=== PATIENT | male | born 1960 | race Two or more races ===

== ENCOUNTER 2017-10-17 21:55 | Inpatient (IN) | payer OTHER ==
[~2017-10-17] VITALS: Ht 177.8 cm; Wt 112.0 kg
[2017-10-17 22:55] LABS: Basophils # (auto) 0 uL; Basophils % (auto) 0.1 % (0.0-2.0); Eosinophils # (auto) 0 uL; Eosinophils % (auto) 0.1 % (0.0-7.0); Hematocrit 30.5 % (41.0-53.0); Hemoglobin 10.5 g/dL (13.5-17.5); Lymphocytes # (auto) 1.5 uL; Mean Corpuscular Hgb Conc. 34.3 g/dL (32.0-36.0); Mean Corpuscular Volume 96.2 fL (80.0-100.0); Monocytes # (auto) 0.9 uL; Monocytes % (auto) 7.1 % (0.0-12.0); Neutrophils # (auto) 10.3 uL; Neutrophils % (auto) 80.7 % (37.0-80.0); Nucleated Red Blood Cells % 0.1 %; Platelet Count (auto) 418 10^3/uL (140-450); Red Blood Cells 3.17 10^6/uL (4.5-5.90); Red Cell Distribution Width 12.4 % (11.8-14.3); White Blood Cell 12.7 10^3/uL (4.4-10.8)
[2017-10-17 23:09] LABS: Alanine Aminotransferase 11 U/L (16-61); Albumin 2.5 g/dL (3.4-5.0); Anion Gap 13 (5-15); Aspartate Aminotransferase 7 U/L (15-37); Blood Urea Nitrogen 23 mg/dL (7-18); Calcium 8.9 mg/dL (8.5-10.1); Carbon Dioxide 18 mmol/L (21-32); Chloride 102 mmol/L (98-107); GFR African American 56 mL/min; GFR Non-African American 46 mL/min; Glucose 91 mg/dL (74-106); Potassium 4.5 mmol/L (3.5-5.1); Sodium 133 mmol/L (136-145)
[2017-10-17 23:13] LABS: Alkaline Phosphatase 90 U/L (45-117); Bilirubin, Total 0.4 mg/dL (0.2-1.0); Total Protein 7.7 g/dL (6.4-8.2)
[2017-10-17 23:14] LABS: Lactic Acid w/Reflex 3.4 mmol/L (0.4-2.0)
[2017-10-18] MEDS ORDERED: MORPHINE SULFATE 4 MG/ML SYR/VIAL IV ONE (05:15)
[2017-10-18] MEDS ORDERED: ONDANSETRON HCL 4 MG/2 ML VIAL IV ONE (05:15)
[2017-10-18] MEDS ORDERED: SODIUM CHLORIDE 0.9% 1,000 ML IV ONE (05:45)
[2017-10-18] MEDS ORDERED: CLINDAMYCIN 900MG IV 50 ML IV ONE (08:15)
[2017-10-18] MEDS ORDERED: LORazepam 0.5 MG TAB PO PRN (08:15)
[2017-10-18] MEDS ORDERED: PIPERACILLIN-TAZOB 3.375GM 100 ML IV ONE (08:15)
[2017-10-18] MEDS ORDERED: DEXTROSE (50%) 50ML SYRG IV PRN ×2 (08:15→11:45)
[2017-10-18] MEDS ORDERED: NITROGLYCERIN 0.4 MG SL TAB SL PRN ×2 (08:15→10:45)
[2017-10-18] MEDS ORDERED: TEMAZEPAM 15 MG CAP PO PRN (08:15)
[2017-10-18] MEDS ORDERED: ACETAMINOPHEN 500 MG TAB PO PRN ×2 (08:15→10:45)
[2017-10-18] MEDS ORDERED: PROMETHAZINE HCL 25 MG/ML 1ML IV PRN (08:15)
[2017-10-18] MEDS ORDERED: MORPHINE SULFATE 4 MG/ML SYR/VIAL IV PRN ×2 (08:15→10:45)
[2017-10-18] MEDS ORDERED: HYDROcodone-ACET 5/325MG TAB PO PRN (08:15)
[2017-10-18] MEDS ORDERED: VANCOMYCIN 1GM/250ML 250 ML IV ONE ×2 (08:15→09:45)
[2017-10-18] MEDS ORDERED: MORPHINE SULFATE 8mg/ml INJ SDV IV PRN ×3 (08:15→11:00)
[2017-10-18] MEDS ORDERED: VANCOMYCIN PER PHARMACY 0 MG IV SCH (10:45)
[2017-10-18] MEDS ORDERED: InsuLIN REG 1unit/0.01ml Soln (100units/ml) SC SCH (11:30)
[2017-10-18] MEDS ORDERED: ACCU-CHEK COMFORT CURVE STRIP VI SCH (11:30)
[2017-10-18] MEDS: InsuLIN REG 1unit/0.01ml Soln (100units/ml) SC SCH ×3 (11:37→21:46)
[2017-10-18] MEDS ORDERED: SODIUM CHLORIDE 0.9% 2,000 ML IV ONE (11:45)
[2017-10-18] MEDS: ACCU-CHEK COMFORT CURVE STRIP VI SCH ×3 (11:48→21:46)
[2017-10-18] MEDS: ONDANSETRON HCL 4 MG/2 ML VIAL IV PRN (11:48)
[2017-10-18] MEDS: MORPHINE SULFATE 8mg/ml INJ SDV IV PRN ×3 (11:48→21:00)
[2017-10-18] MEDS ORDERED: PIPERACILLIN-TAZOB 3.375GM 100 ML IV SCH (12:00)
[2017-10-18] MEDS ORDERED: CLINDAMYCIN 600MG IV 50 ML IV SCH (13:00)
[2017-10-18] MEDS: SODIUM CHLORIDE 0.9% 1,000 ML IV SCH ×2 (13:41→21:47)
[2017-10-18] MEDS: PIPERACILLIN-TAZOB 3.375GM 100 ML IV SCH ×2 (13:41→18:14)
[2017-10-18 14:00] VITALS: BP 133/75
[2017-10-18 18:04] VITALS: BP 117/65
[2017-10-18 20:00] VITALS: BP 140/77
[2017-10-18] MEDS: VANCOMYCIN 1GM/250ML 250 ML IV SCH (21:45)
[2017-10-18 22:00] VITALS: BP 127/74
[2017-10-19] MEDS: PIPERACILLIN-TAZOB 3.375GM 100 ML IV SCH ×4 (00:13→17:25)
[2017-10-19] MEDS: MORPHINE SULFATE 8mg/ml INJ SDV IV PRN ×4 (01:48→17:25)
[2017-10-19 05:00] VITALS: BP 115/70
[2017-10-19] MEDS: InsuLIN REG 1unit/0.01ml Soln (100units/ml) SC SCH ×4 (06:19→22:00)
[2017-10-19] MEDS: ACCU-CHEK COMFORT CURVE STRIP VI SCH ×4 (06:20→22:00)
[2017-10-19 07:11] LABS: Basophils # (auto) 0 uL; Basophils % (auto) 0.4 % (0.0-2.0); Eosinophils # (auto) 0.1 uL; Eosinophils % (auto) 0.7 % (0.0-7.0); Hematocrit 27.1 % (41.0-53.0); Hemoglobin 9.3 g/dL (13.5-17.5); Lymphocytes # (auto) 1.7 uL; Mean Corpuscular Hemoglobin 32.9 pg (28.0-32.0); Mean Corpuscular Hgb Conc. 34.2 g/dL (32.0-36.0); Monocytes # (auto) 0.7 uL; Monocytes % (auto) 7.2 % (0.0-12.0); Neutrophils # (auto) 7.9 uL; Neutrophils % (auto) 75.7 % (37.0-80.0); Platelet Count (auto) 378 10^3/uL (140-450); Red Blood Cells 2.82 10^6/uL (4.5-5.90); Red Cell Distribution Width 12.4 % (11.8-14.3); White Blood Cell 10.4 10^3/uL (4.4-10.8)
[2017-10-19 07:29] LABS: BUN/Creatinine Ratio 11.6; Calcium 8.3 mg/dL (8.5-10.1); Potassium 4.1 mmol/L (3.5-5.1)
[2017-10-19] MEDS: SODIUM CHLORIDE 0.9% 1,000 ML IV SCH ×2 (07:30→17:25)
[2017-10-19 08:30] VITALS: BP 130/75
[2017-10-19 09:00] VITALS: BP 130/75
[2017-10-19] MEDS: VANCOMYCIN 1GM/250ML 250 ML IV SCH ×2 (10:18→23:30)
[2017-10-19 13:00] VITALS: BP 136/72
[2017-10-19 17:41] VITALS: BP 140/76
[2017-10-19 22:00] VITALS: BP 146/78
[2017-10-20] MEDS: HYDROmorphone HCL 2 MG/ML VL IV PRN ×5 (00:45→20:47)
[2017-10-20] MEDS: PIPERACILLIN-TAZOB 3.375GM 100 ML IV SCH ×3 (01:00→11:34)
[2017-10-20] MEDS: SODIUM CHLORIDE 0.9% 1,000 ML IV SCH ×3 (03:30→23:30)
[2017-10-20 06:01] VITALS: BP 135/76
[2017-10-20] MEDS: MORPHINE SULFATE 8mg/ml INJ SDV IV PRN (06:41)
[2017-10-20] MEDS: InsuLIN REG 1unit/0.01ml Soln (100units/ml) SC SCH ×4 (06:44→22:00)
[2017-10-20 06:56] LABS: Basophils # (auto) 0 uL
[2017-10-20 06:59] LABS: Basophils % (auto) 0.4 % (0.0-2.0); Eosinophils # (auto) 0.1 uL; Eosinophils % (auto) 1.4 % (0.0-7.0); Hematocrit 27.9 % (41.0-53.0); Lymphocytes % (auto) 19.3 % (10.0-50.0); Mean Corpuscular Hemoglobin 33.7 pg (28.0-32.0); Mean Corpuscular Hgb Conc. 35.7 g/dL (32.0-36.0); Mean Corpuscular Volume 94.4 fL (80.0-100.0); Monocytes # (auto) 0.5 uL; Monocytes % (auto) 5.1 % (0.0-12.0); Neutrophils # (auto) 7.5 uL; Neutrophils % (auto) 73.8 % (37.0-80.0); Platelet Count (auto) 453 10^3/uL (140-450); Red Blood Cells 2.96 10^6/uL (4.5-5.90); Red Cell Distribution Width 12.2 % (11.8-14.3); White Blood Cell 10.1 10^3/uL (4.4-10.8)
[2017-10-20] MEDS: ACCU-CHEK COMFORT CURVE STRIP VI SCH ×4 (07:00→22:00)
[2017-10-20 07:09] LABS: BUN/Creatinine Ratio 10.4; Calcium 9.1 mg/dL (8.5-10.1); Potassium 3.7 mmol/L (3.5-5.1)
[2017-10-20 09:00] VITALS: BP 147/76
[2017-10-20] MEDS: VANCOMYCIN 1GM/250ML 250 ML IV SCH (10:05)
[2017-10-20] MEDS: ONDANSETRON HCL 4 MG/2 ML VIAL IV PRN ×2 (10:06→16:14)
[2017-10-20 13:00] VITALS: BP 138/64
[2017-10-20 17:00] VITALS: BP 123/82
[2017-10-20] MEDS: ERTAPENEM GM in SODIUM CHL 0.9% 50 ML IV SCH (17:19)
[2017-10-20 22:00] VITALS: BP 130/62
[2017-10-21] MEDS: HYDROmorphone HCL 2 MG/ML VL IV PRN ×6 (00:38→23:32)
[2017-10-21] MEDS: MORPHINE SULFATE 8mg/ml INJ SDV IV PRN (04:27)
[2017-10-21 05:07] VITALS: BP 139/73
[2017-10-21 06:21] LABS: Basophils # (auto) 0.1 uL; Basophils % (auto) 0.6 % (0.0-2.0); Eosinophils # (auto) 0.1 uL; Eosinophils % (auto) 1.3 % (0.0-7.0); Hematocrit 28.2 % (41.0-53.0); Hemoglobin 9.7 g/dL (13.5-17.5); Lymphocytes # (auto) 1.3 uL; Lymphocytes % (auto) 13.8 % (10.0-50.0); Mean Corpuscular Hemoglobin 32.7 pg (28.0-32.0); Mean Corpuscular Hgb Conc. 34.4 g/dL (32.0-36.0); Monocytes # (auto) 0.7 uL; Monocytes % (auto) 7.2 % (0.0-12.0); Neutrophils # (auto) 7.2 uL; Neutrophils % (auto) 77.1 % (37.0-80.0); Nucleated Red Blood Cells % 0.1 %; Platelet Count (auto) 403 10^3/uL (140-450); Red Blood Cells 2.97 10^6/uL (4.5-5.90); Red Cell Distribution Width 12.5 % (11.8-14.3); White Blood Cell 9.3 10^3/uL (4.4-10.8)
[2017-10-21 06:41] LABS: Calcium 8.9 mg/dL (8.5-10.1); Potassium 4.2 mmol/L (3.5-5.1)
[2017-10-21] MEDS: ACCU-CHEK COMFORT CURVE STRIP VI SCH ×4 (07:00→22:00)
[2017-10-21] MEDS: InsuLIN REG 1unit/0.01ml Soln (100units/ml) SC SCH ×4 (07:00→22:00)
[2017-10-21 08:26] LABS: BUN/Creatinine Ratio 10.6
[2017-10-21 08:40] VITALS: BP 148/76
[2017-10-21] MEDS: SODIUM CHLORIDE 0.9% 1,000 ML IV SCH ×2 (09:15→19:30)
[2017-10-21] MEDS: ERTAPENEM GM in SODIUM CHL 0.9% 50 ML IV SCH (09:15)
[2017-10-21] MEDS ORDERED: ERTAPENEM SOD 1 GM INJ VIAL IV SCH (10:00)
[2017-10-21] MEDS: ONDANSETRON HCL 4 MG/2 ML VIAL IV PRN (10:20)
[2017-10-21 12:00] VITALS: BP 150/88
[2017-10-21] MEDS ORDERED: DAKINS QUARTER STR 0.125% (NaHypochlorite) 473 ML TOPICAL SOL TOP SCH (13:30)
[2017-10-21 17:00] VITALS: BP 159/88
[2017-10-21] MEDS ORDERED: IBUP800T24 ×2 (18:09)
[2017-10-21] MEDS ORDERED: GABA-339 ×2 (18:09)
[2017-10-21] MEDS ORDERED: OME20T ×2 (18:09)
[2017-10-21] MEDS ORDERED: GLYB5TAB8 ×2 (18:09)
[2017-10-21] MEDS ORDERED: GEMF600T3 ×2 (18:09)
[2017-10-21] MEDS ORDERED: TRAM50TA2 ×2 (18:09)
[2017-10-21] MEDS ORDERED: INSREG3 ×2 (18:09)
[2017-10-21] MEDS ORDERED: CILO100T ×2 (18:09)
[2017-10-21] MEDS ORDERED: ENAL20TA70 ×2 (18:09)
[2017-10-21] MEDS ORDERED: CLIN1CAP4 (18:09)
[2017-10-21] MEDS ORDERED: METF-372 ×2 (18:09)
[2017-10-21 22:00] VITALS: BP 156/87
[2017-10-22] MEDS: MORPHINE SULFATE 8mg/ml INJ SDV IV PRN ×4 (03:30→18:06)
[2017-10-22 04:46] VITALS: BP 162/84
[2017-10-22] MEDS: SODIUM CHLORIDE 0.9% 1,000 ML IV SCH ×2 (05:30→15:30)
[2017-10-22 06:45] LABS: Basophils # (auto) 0.1 uL; Basophils % (auto) 0.5 % (0.0-2.0); Eosinophils # (auto) 0.1 uL; Eosinophils % (auto) 0.9 % (0.0-7.0); Hematocrit 29.3 % (41.0-53.0); Hemoglobin 10.2 g/dL (13.5-17.5); Lymphocytes # (auto) 1.7 uL; Lymphocytes % (auto) 14.2 % (10.0-50.0); Mean Corpuscular Hemoglobin 32.9 pg (28.0-32.0); Mean Corpuscular Hgb Conc. 34.8 g/dL (32.0-36.0); Mean Corpuscular Volume 94.6 fL (80.0-100.0); Monocytes # (auto) 0.9 uL; Monocytes % (auto) 7.3 % (0.0-12.0); Neutrophils # (auto) 9.1 uL; Neutrophils % (auto) 77.1 % (37.0-80.0); Nucleated Red Blood Cells % 0.1 %; Platelet Count (auto) 400 10^3/uL (140-450); Red Blood Cells 3.09 10^6/uL (4.5-5.90); Red Cell Distribution Width 12.6 % (11.8-14.3); White Blood Cell 11.8 10^3/uL (4.4-10.8)
[2017-10-22 06:59] LABS: Potassium 4.2 mmol/L (3.5-5.1)
[2017-10-22] MEDS: InsuLIN REG 1unit/0.01ml Soln (100units/ml) SC SCH ×3 (07:10→17:00)
[2017-10-22] MEDS: ACCU-CHEK COMFORT CURVE STRIP VI SCH ×3 (07:11→17:26)
[2017-10-22 07:15] LABS: BUN/Creatinine Ratio 13.4; Calcium 9.3 mg/dL (8.5-10.1)
[2017-10-22] MEDS: ERTAPENEM GM in SODIUM CHL 0.9% 50 ML IV SCH (08:53)
[2017-10-22 09:00] VITALS: BP 162/91
[2017-10-22] MEDS ORDERED: ERTAPENEM SOD INJ 1 GM in SODIUM CHL 0.9% 50 ML IV SCH (10:15)
[2017-10-22 10:44] LABS: INR 1.13 (0.9-1.15)
[2017-10-22] MEDS ORDERED: MULTIPLE VITAMINS W/ MINERALS TAB PO ONE (10:45)
[2017-10-22] MEDS ORDERED: ASCORBIC ACID 500 MG TAB PO ONE (10:45)
[2017-10-22 13:00] VITALS: BP 144/83
[2017-10-22] MEDS ORDERED: LIDOCAINE 1% (LOCAL ANESTH.) PF 5ml SDV ID ONE (15:00)
[2017-10-22 17:00] VITALS: BP 152/81
[2017-10-22] MEDS ORDERED: PRO-STAT 64 30ML PO SCH (18:00)
[2017-10-22] MEDS ORDERED: ASCORBIC ACID 500 MG TAB PO SCH (22:00)
[2017-10-22] MEDS ORDERED: SODIUM CHLOR 0.9% PF (SALINE LOCK) 10ML VIAL/SYR IV SCH (22:00)
[2017-10-23] MEDS ORDERED: MULTIPLE VITAMINS W/ MINERALS TAB PO SCH (10:00)
== END 2017-10-22 18:48 | disposition home or self-care (01) | DRG 871 ==
LOC: EDBD 21:55 → ER 22:01 → TELE 22:02 → TELE-EAST 10-18 12:18 → EAST 10-20 12:45
PROVIDERS: ADMIT Internal Medicine; ATTEND Internal Medicine
PROC: 02HV33Z Insertion of Infusion Device into Superior Vena Cava, Percutaneous Approach (ICD-10-PCS; principal; 2017-10-22)
DX: A41.9 Sepsis, unspecified organism (principal); E43 Unspecified severe protein-calorie malnutrition; N17.9 Acute kidney failure, unspecified; L03.115 Cellulitis of right lower limb; E11.52 Type 2 diabetes mellitus with diabetic peripheral angiopathy with gangrene; M86.9 Osteomyelitis, unspecified; J44.9 Chronic obstructive pulmonary disease, unspecified; E11.21 Type 2 diabetes mellitus with diabetic nephropathy; E11.69 Type 2 diabetes mellitus with other specified complication; F41.9 Anxiety disorder, unspecified; I10 Essential (primary) hypertension; Z82.49 Family history of ischemic heart disease and other diseases of the circulatory system; Z68.35 Body mass index [BMI] 35.0-35.9, adult; Z83.3 Family history of diabetes mellitus; Z89.411 Acquired absence of right great toe
CPT/HCPCS: 36415; 36569; 71045; 73700; 80048; 80053; 80202; 82962; 83036; 83605; 84484; 85025; 85610; 87040; 87077; 87081; 87186; 87205; 93005; 93926; 96361; 96365; 96367; 96375; J1335; J1815; J2270; J2405; J2543; J3490

== ENCOUNTER 2017-10-23 19:03 | Emergency (ER) | payer OTHER ==
[~2017-10-23] VITALS: Ht 167.6 cm; Wt 114.3 kg
[~2017-10-23 19:03] MED LIST: CILO100T; CLIN1CAP4; ENAL20TA70; GABA-339; GEMF600T3; GLYB5TAB8; IBUP800T24; INSREG3; METF-372; OME20T; TRAM50TA2
[2017-10-23 20:16] LABS: Albumin 2.5 g/dL (3.4-5.0); BUN/Creatinine Ratio 13.7; Calcium 9.2 mg/dL (8.5-10.1); Potassium 3.3 mmol/L (3.5-5.1)
[2017-10-23 20:18] LABS: Basophils # (auto) 0.1 uL; Basophils % (auto) 0.6 % (0.0-2.0); Eosinophils # (auto) 0.4 uL; Eosinophils % (auto) 3.1 % (0.0-7.0); Hematocrit 31.4 % (41.0-53.0); Hemoglobin 10.9 g/dL (13.5-17.5); Lymphocytes # (auto) 1.7 uL; Lymphocytes % (auto) 12.8 % (10.0-50.0); Mean Corpuscular Hemoglobin 32.5 pg (28.0-32.0); Mean Corpuscular Hgb Conc. 34.8 g/dL (32.0-36.0); Mean Corpuscular Volume 93.3 fL (80.0-100.0); Monocytes # (auto) 0.7 uL; Monocytes % (auto) 5.4 % (0.0-12.0); Neutrophils # (auto) 10.1 uL; Neutrophils % (auto) 78.1 % (37.0-80.0); Nucleated Red Blood Cells % 0.1 %; Platelet Count (auto) 441 10^3/uL (140-450); Red Blood Cells 3.37 10^6/uL (4.5-5.90); Red Cell Distribution Width 12.6 % (11.8-14.3)
[2017-10-23 20:19] LABS: Bilirubin, Total 0.4 mg/dL (0.2-1.0); Total Protein 7.7 g/dL (6.4-8.2)
[2017-10-23] MEDS ORDERED: ERTAPENEM SOD INJ 1 GM in SODIUM CHL 0.9% 50 ML IV ONE (23:15)
[2017-10-24 09:11] VITALS: BP 160/94
== END 2017-10-24 10:18 | disposition home or self-care (01) ==
LOC: ER 19:03
DX: L03.115 Cellulitis of right lower limb (principal); T82.898S Other specified complication of vascular prosthetic devices, implants and grafts, sequela; I10 Essential (primary) hypertension; E11.9 Type 2 diabetes mellitus without complications; Z45.2 Encounter for adjustment and management of vascular access device
CPT/HCPCS: 36415; 71045; 80053; 85025; 96365; 99285; J1335